=== PATIENT | male | born 1965 | race Caucasian/White ===

== ENCOUNTER → 2018-01-03 | Outpatient (CLI) | payer OTHER | LOC: M.MRI 07:10 | DX: M77.9 Enthesopathy, unspecified (principal); H90.3 Sensorineural hearing loss, bilateral ==

== ENCOUNTER → 2019-06-06 | Outpatient (CLI) | payer OTHER | LOC: M.RAD 09:58 | DX: J98.4 Other disorders of lung (principal); M25.531 Pain in right wrist; J98.8 Other specified respiratory disorders; M20.001 Unspecified deformity of right finger(s); J98.11 Atelectasis; R35.0 Frequency of micturition; R39.89 Other symptoms and signs involving the genitourinary system ==

== ENCOUNTER → 2019-06-19 | Outpatient (CLI) | payer OTHER ==
--- NOTE | 2019-06-19 13:18 | 2DMMODE ---
[place] [address] 2 D/M-MODE ECHOCARDIOGRAM Name: BOLA HUTTON Room: [facility]#: [id number] Admission: 06/19/19 Attend Phys: Shalom Pierre, Discharge: Date of : 67 Date of Service: 06/19/19 1318 Report #: [id number] THIS REPORT FOR: //name// APPROVED REPORT Study performed: 06/19/2019 09:21:41 EXAM: Comprehensive 2D, Doppler, and color-flow Echocardiogram Patient Location: Out-Patient BSA: 1.84 HR: 77 bpm BP: 125/82 mmHg Other Information Study Quality: Good Indications Murmur 2D Dimensions IVSd: 11.84 (7-11mm) LVOT Diam: 20.23 (18-24mm) LVDd: 52.95 mm PWd: 11.74 (7-11mm) Ascending Ao: 32.38 (22-36mm) LVDs: 31.79 (25-40mm) Aortic Root: 27.62 mm Volumes Left Atrial Volume (Systole) LA ESV Index: 19.50 mL/m2 Aortic Valve AoV Peak Hong.: 1.30 m/s AO Peak Gr.: 6.78 mmHg LVOT Max P.22 mmHg AO Mean Gr.: 3.79 mmHg LVOT Mean P.44 mmHg LVOT Max V: 0.90 m/s AO V2 VTI: 21.32 cm LVOT Mean V: 0.55 m/s YUNG (VTI): 1.97 cm2 LVOT V1 VTI: 13.06 cm AI Bracken: 3.36 m/s2 AI PHT: 444.20 ms Mitral Valve MV Decel. Time: 204.33 ms MV PHT: 59.26 ms MVA (PHT): 3.71 cm2 [place] [address] 2 D/M-MODE ECHOCARDIOGRAM Name: BOLA HUTTON Room: [facility]#: [id number] Admission: 06/19/19 Attend Phys: Shalom Pierre, Discharge: Date of : 67 Date of Service: 06/19/19 1318 Report #: [id number] TDI Medial E' Hong.: 0.08 m/s Lateral E' Hong.: 0.12 m/s Pulmonary Valve PV Peak Hong.: 0.83 m/s PV Peak Gr.: 2.74 mmHg Left Ventricle The left ventricle is normal size. Paradoxical septum motion consistent with LBBB There is global hypokinesis of the left ventricle. Mild concentric left ventricular hypertrophy. Left ventricular systolic function is decreased. LVEF is 30-35%. Grade I - abnormal relaxation pattern. Right Ventricle The right ventricle is normal size. The right ventricular systolic function is normal. Atria The left atrium size is normal. The right atrium size is normal. Aortic Valve Aortic valve leaflets are mildly thickened. Moderate aortic regurgitation. There is no aortic valvular stenosis. Mitral Valve The mitral valve is normal in structure. Mild mitral regurgitation. No evidence of mitral valve stenosis. Tricuspid Valve The tricuspid valve is normal in structure. There is trace tricuspid valve regurgitation noted. Pulmonic Valve The pulmonary valve is normal in structure. Mild pulmonic regurgitation. Great Vessels The aortic root is normal in size. IVC is normal in size and collapses >50% with inspiration. Pericardium There is no peric[place] [address] 2 D/M-MODE ECHOCARDIOGRAM Name: [facility]OLA HUTTON [id number] Admission: 06/19/19 Attend Phys: Shalom Pierre, Discharge: Date of : 67 Date of Service: 06/19/19 1318 Report #: [id number] <Conclusion> LVEF is 30-35%. Mild concentric left ventricular hypertrophy. Moderate aortic regurgitation. Mild mitral regurgitation. <ELECTRONICALLY SIGNED> By: Shalom Diaz MD, [facility] 06/19/19 1318 17 1318 Shalom Diaz MD, FACC /INF
== END ==
LOC: M.CRD 09:00
DX: I08.8 Other rheumatic multiple valve diseases (principal)

== ENCOUNTER → 2019-07-03 | Outpatient (CLI) | payer OTHER ==
[~2019-07-03] VITALS: Ht 172.7 cm; Wt 69.4 kg
[~2019-07-03] MED LIST: CARVEDILOL3.125 MG PO; COZAAR 25 MG TA25 M1 PO; SPIRONOLACTONE25 M1 PO
[2019-07-03 08:20] VITALS: BP 115/76
[2019-07-03 08:27] LABS: HEMATOCRIT 44.4 % (42.0-52.0); MCH 34.4 pg (26.0-34.0); MCHC 35.9 g/dL (28.0-37.0); MCV 95.7 fL (80.0-100.0); MPV 8.9 fl. (7.2-11.1); RBC 4.64 mil/uL (4.50-6.00); RDW-CV 12.2 % (10.5-14.5); WBC 6.2 thou/uL (4.0-11.0)
[2019-07-03 08:38] LABS: APTT 26.2 Seconds (25.0-31.3); PROTIME 10.1 Seconds (9.20-11.50)
[2019-07-03 08:47] LABS: ANION GAP 4 mmol/L (7-16); BUN 10 mg/dL (7-18); CALCIUM 8.7 mg/dL (8.5-10.1); CHLORIDE 104 mmol/L (98-107); CO2 32 mmol/L (21-32); CREATININE 1.1 mg/dL (0.6-1.3); GLUCOSE 91 mg/dL (70-99); POTASSIUM 4.1 mmol/L (3.5-5.1); SODIUM 140 mmol/L (136-145)
[2019-07-03 08:52] LABS: ALBUMIN 3.7 g/dL (3.4-5.0); ALKALINE PHOSPHATASE 48 U/L (46-116); SGOT 16 U/L (15-37); SGPT 28 U/L (30-65); TOTAL BILIRUBIN 0.4 mg/dL (<0.1-1.0); TOTAL PROTEIN 7.4 g/dL (6.4-8.2)
[2019-07-03 10:00] VITALS: BP 120/61
--- NOTE | 2019-07-03 10:08 | EKG ---
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: : 1965 Requested By: Shalom Diaz Order Number: [id number] Reading MD: Shalom Diaz Measurements Intervals [place] Rate: 78 P: 47 SD: 198 QRS: 16 QRSD: 164 T: 187 QT: 420 QTc: 479 Interpretive Statements Sinus rhythm Left bundle branch block Compared to ECG 03/23/2009 21:56:42 Left bundle-branch block now present Electronically Signed On 07-03-2019 10:07:58 [employer] SUPERINTENDENT by Shalom Diaz [email or web address] <ELECTRONICALLY SIGNED> By: Shalom Diaz MD, [facility] 07/03/19 1007 0829 8 Shalom Diaz MD, FACC /EPI
[2019-07-03 10:11] VITALS: BP 115/70
[2019-07-03 10:11] LABS: CHOLESTEROL 236 mg/dL (<200); HDL CHOLESTEROL 36 mg/dL (>40); LDL CHOLESTEROL 169 mg/dL (<100); SERUM ASSESSMENT Clear; TC:HDL 6.6 Ratio (Not establshd); TRIGLYCERIDE 156 mg/dL (<150); VLDL 31 mg/dL (<40)
[2019-07-03 10:51] VITALS: BP 122/68
--- NOTE | 2019-07-03 17:49 | CARD ---
[address] [address] CARDIAC CATH REPORT Name: BOLA HUTTON Room: [facility] JIMMY Mendoza#: [id number] Admission: 07/03/19 Attend Phys: Shalom Diaz MD, F Discharge: Date of : 67 Report #: [id number] THIS REPORT FOR: //name// APPROVED REPORT Study performed: 07/03/2019 08:03:48 Patient Details Patient Status: Out-Patient Room #: The patient is a 54 year-old male Event Personnel Shalom Diaz Parts Sales Counterperson, Geri Jane RN Imcu Specialist, Ryan De La Torre Scrub, Kierra Luu RTR Monitor Procedures Performed Art Access - R radial artery, Left Heart Cath w/or w/o Coronaries, Supravalvular Aortography Injection, Hemostasis with Hemoband Indication Cardiomyopathy, Chest pain, Murmur Risk Factors Tobacco History () Admission/Lab Medications/Medications given during procedure Oxygen Nasal cannula 2 l per min, Lidocaine Subcut 6 ml, Nitroglycerin IA 400 mcg total, Verapamil IA 5 mg total, Heparin IV 3500 units Procedure Narrative The patient was brought electively to the Cardiac Catheterization Laboratory and was prepped and draped in a sterile manner. The right wrist was infiltrated with 2% Lidocaine subcutaneous anesthesia. A 6F Slender Glidesheath sheath was inserted into the right radial artery. Coronary angiography was performed using coronary diagnostic catheters. The right coronary system was accessed and visualized with a 6F JR4 catheter. The left coronary system was accessed and visualized with a 6F JL4 catheter. The left ventricle was accessed and visualized with a 6F Pigtail catheter. Left ventricular/Aortic Valve gradient assessed via catheter pullback. Left ventriculogram was performed in BARRETT projection. An aortogram of the ascending aorta was performed. Closure device was deployed with a 6 [place] [address] CARDIAC CATH REPORT Name: BRENNENBOLA CARDOZA Room: [facility].#: [id number] Admission: 07/03/19 Attend Phys: Shalom Diaz MD, F Discharge: Date of : 67 Report #: [id number] 24cm. The patient tolerated the procedure well and there were no complications associated with the procedure. There was no hematoma. Intraoperative Conscious Sedation Sedation start time: 09:23 Case end Time: 09:42 Fentanyl 25 mcg Versed 2 mg Fluoro Time: 3.9 minutes Dose: DAP 05490 cGycm2 590 mGy Contrast Type and Amount: Omnipaque 140 ml Coronary Angiography The patient's coronary anatomy is co- dominant. [place] Artery Percent Stenosis Left Main: 0 % Prox LAD: 0 % Mid/Distal LAD: 0 % Circumflex: 0 % RCA: 0 % Ramus: % Left Ventriculography The left ventricle is normal in size with normal contractility. The left ventricular ejection fraction is estimated to be 60-65%. Left ventricular wall motion abnormalities are not present. There is 1+ mitral insufficiency. Aortic root injection showed moderate insufficiency. Hemodynamics The aortic pressure is 118/64 mmHg with a mean of 87 mmHg. The left ventricular pressure is 117/0 mmHg with a mean of mmHg. The left ventricular end diastolic pressure is 12 mmHg. There was no gradient across the aortic valve upon pullback. Pullback from the left ventricle to the aorta revealed no gradient across the aortic valve. Conclusion 1. normal coronary arteries 2. LVEF 60-65% 3. moderate aortic insufficiency Recommendations recommend LATRICE to evaluate for AVR <ELECTRONICALLY SIGNED> By: Shalom Diaz MD, FACC 07/03/19 1749 48 [id number] Diaz MD, FACC /INF
== END | disposition home or self-care (01) ==
LOC: M.CL 07:35
PROVIDERS: Internal Medicine Cardiovascular Disease
DX: R07.9 Chest pain, unspecified (principal); I35.1 Nonrheumatic aortic (valve) insufficiency; I42.9 Cardiomyopathy, unspecified; F17.210 Nicotine dependence, cigarettes, uncomplicated; Z79.899 Other long term (current) drug therapy; Z98.890 Other specified postprocedural states

== ENCOUNTER → 2019-07-07 | Outpatient (CLI) | payer OTHER ==
[2019-07-07] VITALS (8 sets, daily range): BP systolic 102–141; BP diastolic 49–71
--- NOTE | 2019-07-07 14:56 | TEE ---
[place] [address] TRANSESOPHAGEAL ECHOCARDIOGRAM Name: BOLA HUTTON Room: [facility]#: [id number] Admission: 07/07/19 Attend Phys: Shalom Diaz MD Discharge: Date of : 67 Date of Service: 07/07/19 1455 Report #: [id number] THIS REPORT FOR: //name// APPROVED REPORT Study performed: 07/07/2019 10:34:07 EXAM: Transesophageal Echocardiogram Patient Location: Out-Patient Status: routine BSA: 1.82 HR: 71 bpm BP: 133/74 mmHg Rhythm: NSR Other Information Study Quality: Good Indications Aortic Valve Disease Aortic insufficiency Echo Enhancing Agent Indication: Rule out Shunt Agent(s) / Amount(s) Used: Agitated Saline 20 cc Comments: 2 Bubble studies Procedure After obtaining informed consent, patient underwent transesophageal echo in the [employer] Service [employer]. Type of Sedation : Conscious Sedation Sedation was administered by Geri Jane. Sedation start time: 1130 Case end Time: 03037 Sedation was achieved intravenously with: Versed (4) Fentanyl (75) Transesophageal probe was inserted and advanced into esophagus without difficulty by Shalom Diaz MD, FACC. Echo enhancement indication: R/O Septal defect. Echo enhancement agent administered: Agitated Saline The LATRICE was performed without complications. Throughout the procedure, the blood pressure, pulse oximetry, cardiac rhythm, and rate were monitored. The patient tolerated the procedure without adverse effects. Recovery from conscious sedation was uneventful and [place] [address] TRANSESOPHAGEAL ECHOCARDIOGRAM Name: BOLA HUTTON Room: [facility] Reji#: [id number] Admission: 07/07/19 Attend Phys: Shalom Diaz MD Discharge: Date of : 67 Date of Service: 07/07/19 1455 Report #: [id number] Left Ventricle The left ventricle is normal size. There is global hypokinesis of the left ventricle. There is normal left ventricular wall thickness. Left ventricular systolic function is mildly decreased. LVEF is 40-45%. Right Ventricle The right ventricle is normal size. The right ventricular systolic function is normal. Atria Left atrium is mildly dilated. No thrombus is visualized in the left atrium or appendage. Interatrial septum is intact without evidence of ASD or PFO. The right atrium size is normal. Aortic Valve The aortic valve is normal in structure. Moderate aortic regurgitation. There is no aortic valvular stenosis. Mitral Valve The mitral valve is normal in structure. There is no mitral valve regurgitation noted. No evidence of mitral valve stenosis. Tricuspid Valve The tricuspid valve is normal in structure. Trace tricuspid regurgitation. Pulmonic Valve The pulmonary valve is normal in structure. There is no pulmonic valvular regurgitation. Great Vessels The aortic root is normal in size. Pericardium There is no pericardial effusion. <Conclusion> LVEF is 40-45%. There is global hypokinesis of the left ventricle. Left atrium is mildly dilated. No thrombus is visualized in the left atrium or appendage. [address] [address] TRANSESOPHAGEAL ECHOCARDIOGRAM Name: BOLA HUTTON Room: [facility]#: [id number] Admission: 07/07/19 Attend Phys: Shalom Diaz MD Discharge: Date of : 67 Date of Service: 07/07/191454 Report #: [id number] Interatrial septum is intact without evidence of ASD or PFO. Moderate aortic regurgitation. <ELECTRONICALLY SIGNED> By: Shalom Diaz MD, FACC 07/07/19 1455 54 54 Shalom Diaz MD, FACC /INF
== END | disposition home or self-care (01) ==
LOC: M.CL 08:01
DX: I08.2 Rheumatic disorders of both aortic and tricuspid valves (principal); I42.9 Cardiomyopathy, unspecified; J43.9 Emphysema, unspecified; Z98.890 Other specified postprocedural states; Z79.899 Other long term (current) drug therapy